=== PATIENT | male | born 1990 | race Caucasian/White ===

== ENCOUNTER 2022-02-24 09:30 | Day surgery (SDC) | payer OTHER ==
[2022-02-20 11:53] LABS: Basophils # (auto) 0.1 10 ^3/uL (0-0.2); Basophils % (auto) 0.8 % (0.0-2.0); Eosinophils # (auto) 0.6 10 ^3/uL (0-0.8); Hematocrit 45.3 % (41.0-53.0); Hemoglobin 15.7 g/dL (13.5-17.5); Lymphocytes # (auto) 2.7 10 ^3/uL (0.4-5.4); Lymphocytes % (auto) 34.5 % (10.0-50.0); Mean Corpuscular Hemoglobin 31.3 pg (28.0-32.0); Mean Corpuscular Hgb Conc. 34.8 g/dL (32.0-36.0); Mean Corpuscular Volume 90.2 fL (80.0-100.0); Monocytes # (auto) 0.5 10 ^3/uL (0-1.3); Monocytes % (auto) 6.1 % (0.0-12.0); Neutrophils # (auto) 4.1 10 ^3/uL (1.6-8.6); Neutrophils % (auto) 51.6 % (37.0-80.0); Nucleated Red Blood Cells % 0.1 %; Red Blood Cells 5.02 10^6/uL (4.5-5.90); Red Cell Distribution Width 13.2 % (11.8-14.3); White Blood Cell 7.9 10^3/uL (4.4-10.8)
[2022-02-20 12:02] LABS: Urine Bacteria NONE SEEN /hpf (None Seen); Urine Blood Negative /uL (Negative); Urine Hyaline Cast FEW /lpf (0 - 2); Urine Mucus FEW (None Seen); Urine WBC 1 /hpf (0 - 3)
[2022-02-20 12:05] LABS: INR 1.02 (0.9-1.15); Partial Thromboplastin Time 29.5 sec (23.6-33.0)
[2022-02-20 12:33] LABS: Albumin 4.1 g/dL (3.4-5.0); Potassium 4.3 mmol/L (3.5-5.1)
[2022-02-20 12:36] LABS: BUN/Creatinine Ratio 13.9; Total Protein 7.6 g/dL (6.4-8.2)
[~2022-02-24] VITALS: Ht 162.6 cm; Wt 71.7 kg
[~2022-02-24 09:30] MED LIST: NAP500T PO
[2022-02-24] MEDS ORDERED: ONDANSETRON HCL 4 MG/2 ML VIAL IV ONE (09:31)
[2022-02-24] MEDS ORDERED: ceFAZolin 1GM/50ML 100 ML IV ONE (09:46)
[2022-02-24] MEDS ORDERED: fentaNYL CITRATE 100 MCG/2 ML VL ONE (10:31)
[2022-02-24] MEDS ORDERED: MEPERIDINE HCL (50 MG/ML) 1 ML VIAL ONE (10:31)
[2022-02-24] MEDS ORDERED: MIDAZOLAM HCL 2MG/2ML 2ml VIAL (1mg/ml) ONE (10:32)
[2022-02-24] MEDS ORDERED: BUPIVACAINE HCL 50 ML ONE (10:59)
[2022-02-24] MEDS ORDERED: DexAMETHasone SOD PHOS 10MG/1ML VIAL INJ ONE (11:26)
[2022-02-24] MEDS ORDERED: PROPOFOL 10 MG/ML 20 ML IV ONE (11:38)
[2022-02-24] MEDS ORDERED: ONDANSETRON HCL 4 MG/2 ML VIAL IV PRN (13:15)
[2022-02-24] MEDS ORDERED: MORPHINE SULFATE 4 MG/ML SYR/VIAL IV PRN (13:15)
[2022-02-24] MEDS ORDERED: LABETALOL HCL 5 MG/ML 4ML SYRINGE IV PRN (13:15)
[2022-02-24] MEDS ORDERED: HYDROmorphone HCL 2 MG/ML VL/or syr IV PRN (13:15)
[2022-02-24] MEDS ORDERED: ePHEDrine SULFATE 50 MG/ML AMP IV PRN (13:15)
[2022-02-24] MEDS ORDERED: MIDAZOLAM HCL 2MG/2ML 2ml VIAL (1mg/ml) IV PRN (13:15)
[2022-02-24 14:00] VITALS: BP 108/66
== END 2022-02-24 14:00 | disposition home or self-care (01) ==
LOC: SUR 09:30
PROVIDERS: ATTEND Orthopaedic Surgery Sports Medicine
DX: S93.432A Sprain of tibiofibular ligament of left ankle, initial encounter (principal); M25.372 Other instability, left ankle; M94.272 Chondromalacia, left ankle and joints of left foot; M24.872 Other specific joint derangements of left ankle, not elsewhere classified; Z98.890 Other specified postprocedural states; Z79.899 Other long term (current) drug therapy; Z87.891 Personal history of nicotine dependence; X58.XXXA Exposure to other specified factors, initial encounter; Y92.89 Other specified places as the place of occurrence of the external cause; Y93.89 Activity, other specified; Y99.8 Other external cause status
CPT/HCPCS: 27698; 29897; 36415; 80053; 81001; 85025; 85610; 85730; C1713; J0690; J1100; J2175; J2250; J2405; J2704; J3010; J3490; U0003